=== PATIENT | female | born 1980 ===

== ENCOUNTER 2018-05-11 01:25 | Emergency (ER) | payer SELFPAY ==
[2018-05-11 01:25] VITALS: BMI 24.2
[2018-05-11 01:31] VITALS: RESP 16
[2018-05-11 02:02] LABS: HCG,QUALITATIVE URINE NEGATIVE (NEGATIVE)
[2018-05-11 02:15] LABS: URINE BACTERIA OCC (<OCC); URINE BILIRUBIN NEGATIVE (NEGATIVE); URINE BLOOD 3+ (NEGATIVE); URINE COLOR Yellow (YELLOW); URINE GLUCOSE (UA) NORMAL (Normal); URINE LEUKOCYTE ESTERASE 3+ Leu/uL (Negative); URINE PROTEIN 2+ mg/dL (NEGATIVE); URINE UROBILINOGEN NORMAL mg/dL (0.2-1.0); WBC CLUMPS FEW /hpf
[2018-05-11 02:22] LABS: URINE CLARITY Turbid (Clear)
[2018-05-11] MEDS ORDERED: Sodium Chloride 0.9% 1,000 ML IV ONE (02:26)
--- NOTE | 2018-05-11 02:28 | C.PDOC ---
History Of Present Illness 37 yo female w/o significant PMHx come in for evaluation of chills, bodyaches developed since early today. Pt also c/o diffuse lower back pain, discomfort on urination for past few days, noted some blood in urine early today. Pt sts, also developed some cold sx associated with sore throat, earache when was seen by PMD and started on Augment 3 days ago with moderate improvement in cold sx. Otherwise, pt denies headache, dizziness, neck pain, drooling, CP, SOB, dyspnea, abd. pain, V/D, vaginal irritation or discharges. Ambulate to Ed for evaluation, appears in pain. Time Seen by Provider: 05/11/18 01:39 Chief Complaint (Nursing): Female Genitourinary History Per: Patient Past Medical History Reviewed: Historical Data, Nursing Documentation, Vital Signs Vital Signs: Last Vital Signs Temp 99.2 F 05/11/18 01:31 Pulse 114 H 05/11/18 01:31 Resp 16 05/11/18 01:31 BP 144/98 H 05/11/18 01:31 Pulse Ox 96 05/11/18 01:31 - Medical History PMH: No Chronic Diseases, Gall Bladder Disease Denies: Chronic Kidney Disease Surgical History: Cholecystectomy Family History: States: No Known Family Hx - Social History Hx Tobacco Use: No Hx Alcohol Use: No Hx Substance Use: No - Immunization History Hx Tetanus Toxoid Vaccination: Yes Hx Influenza Vaccination: No Hx Pneumococcal Vaccination: Yes Review Of Systems Except As Marked, All Systems Reviewed And Found Negative. Constitutional: Positive for: Fever (low grade), Chills, Malaise Eyes: Negative for: Vision Change ENT: Positive for: Nose Discharge, Nose Congestion. Negative for: Ear Discharge, Throat Pain, Throat Swelling Cardiovascular: Negative for: Chest Pain, Palpitations Respiratory: Negative for: Cough, Shortness of Breath, Sputum, Wheezing Gastrointestinal: Positive for: Nausea. Negative for: Vomiting, Abdominal Pain, Diarrhea Genitourinary: Positive for: Dysuria, Frequency, Hematuria. Negative for: Vaginal Discharge, Vaginal Bleeding Musculoskeletal: Positive for: Back Pain. Negative for: Neck Pain Skin: Negative for: Rash Neurological: Negative for: Weakness, Numbness, Headache, Dizziness Physical Exam - Physical Exam Appears: Well, Non-toxic, No Acute Distress Skin: Normal Color, Warm, Dry, No Rash Head: Normacephalic Eye(s): bilateral: PERRL Ear(s): Bilateral: Normal Nose: No Flaring, No Discharge Oral Mucosa: Moist, No Drooling Throat: No Erythema, No Drooling Neck: Trachea Midline, Supple Cardiovascular: Rhythm Regular, No Murmur, No JVD Respiratory: No Decreased Breath Sounds, No Accessory Muscle Use, No Stridor, No Wheezing Gastrointestinal/Abdominal: Soft, Tenderness (mod suprapubic), No Distention, No Guarding, No Rebound Back: No CVA Tenderness, No Vertebral Tenderness, Paraspinal Tenderness (diffuse lumbar) Extremity: Normal ROM, No Deformity, No Swelling Neurological/Psych: Oriented x3, Normal Speech ED Course And Treatment - Laboratory Results Result Diagrams: 05/11/18 02:41 05/11/18 02:41 Urine POC: Negative O2 Sat by Pulse Oximetry: 96 Pulse Ox Interpretation: Normal Progress Note: Pt was OBS in ED for 3 hours and reports moderate improvement in sx. On re-eval, pt appears more comofrtable, afebrile, hemodynamicaly stable. Non-toxic. Tolerate po well in ED. Neck: Supple, (-) meningeal sign. ENT: no acute findings. uuval midline, no edema. Lungs: CTA B/L, BS equal B/L. Abd: be nign, (-) guarding, (-) rebound, (-) RLQ tenderness. back: (-) CVA tenderness. Blood work review, mild leukocytosis with left shift, no evidence of dehydration, normal BUN/CR. UA results (+) WBC, RBC. Pt recieved empirically Rocephin for tx of cystitis r/o early pyelo. Pt advised on course of ds. ref. to f/u with PMD in 1-2 days for re-eavl. Pt advised return to Ed immediately if no improvement in 24 hrs after abx initiation. Pt understand an dagrees with plan. Stable for discharge now. Disposition Counseled Patient/Family Regarding: Studies Performed, Diagnosis, Need For Followup, Rx Given - Disposition Referrals: Bola Justin MD [Non-Staff] - Disposition: HOME/ ROUTINE Disposition Time: 04:20 Condition: STABLE Additional Instructions: STOP AUGMENTIN NOW AND CHANGE TO NEW MEDICATION THAT RECEIVED TODAY Encourage fluids Take medication as prescribed Cranberry supplement daily for 3-4 weeks Follow up with PMD in 2-3 days for re-evaluation. return to ED at any time if any worsening of current symptom or no improvement in 24 hours after antibiotic initiated Prescriptions: Cefdinir [Omnicef] 300 mg PO BID #10 cap Cranberry 500 mg PO BID #60 capsule Phenazopyridine [Pyridium] 200 mg PO BID #6 tab Instructions: Urinary Tract Infection, Adult (DC), Kidney Infection (DC) Forms: [employer] (Comoran) Print Language: ICELANDIC - Clinical Impression Clinical Impression: Pyelonephritis, UTI (urinary tract infection)
[2018-05-11] MEDS ORDERED: Sodium Chloride 0.9% 1,000 ML ONE (02:41)
[2018-05-11] MEDS ORDERED: cefTRIAXone 1 gm 1 GM/100 ML BAG IVPB ONE (02:41)
[2018-05-11 02:46] LABS: BASO # 0.1 K/uL (0.0-0.2); BASO % 0.4 % (0.0-2.0); EOS # 0.2 K/uL (0.0-0.7); LYMPH # 1.5 K/uL (1.0-4.3); LYMPH % 9.5 % (20.0-40.0); MEAN CELL VOLUME 87.9 fL (81.0-99.0); MEAN CORPUSCULAR HEMOGLOBIN 30.3 pg (27.0-31.0); MEAN CORPUSCULAR HGB CONC 34.5 g/dL (33.0-37.0); MEAN PLATELET VOLUME 9.7 fL (7.2-11.7); MONO # 1.4 K/uL (0.0-0.8); MONO % 8.6 % (0.0-10.0); NEUT # 12.9 K/uL (1.8-7.0); NEUT % 80.5 % (50.0-75.0); PLATELET COUNT 192 K/uL (130-400); RBC 4.63 Mil/uL (3.80-5.20); RED CELL DISTRIBUTION WIDTH 13.4 % (11.5-14.5)
[2018-05-11 03:16] LABS: ALB/GLOB RATIO 1.5 (1.0-2.1); ALBUMIN 4.3 g/dL (3.5-5.0); ALT/SGPT 32 U/L (9-52); AST/SGOT 23 U/L (14-36); BLOOD UREA NITROGEN 18 mg/dL (7-17); CALCIUM 9.5 mg/dl (8.6-10.4); GFR NON-AFRICAN AMERICAN > 60
[2018-05-11 04:45] LABS: EOSINOPHIL 1 % (0-4); LYMPHOCYTE 6 % (20-40); MONOCYTE 4 % (0-10); NEUTROPHIL 79 % (50-75); PLATELET ESTIMATE NORMAL (NORMAL); REACTIVE LYMPHOCYTES 10 % (0-0); TOTAL CELLS COUNTED 100
[2018-05-11 05:09] VITALS: BP 100/64; PULSE 87; TEMP 98.8
[2018-05-11 06:05] VITALS: O2SAT 96
== END 2018-05-11 05:20 | disposition home or self-care (01) ==
LOC: C.ER 01:25
DX: N12 Tubulo-interstitial nephritis, not specified as acute or chronic (principal)
CPT/HCPCS: 80053; 81001; 84703; 85025; 87040; 87086; 96365; 96375; 99285; J0696; J1885; J2405; J7030

== ENCOUNTER 2018-07-12 17:48 | Emergency (ER) | payer OTHER ==
[2018-07-12 17:48] VITALS: BMI 24.2
[2018-07-12 18:30] VITALS: RESP 18
[2018-07-12] MEDS ORDERED: LIDOCAINE IV STA (19:52)
[2018-07-12] MEDS ORDERED: Sodium Chloride 0.9% 1,000 ML IV STA (19:52)
[2018-07-12] MEDS ORDERED: SODIUM CHLORIDE 0.9% IV STA (19:52)
--- NOTE | 2018-07-12 19:52 | C.PDOC ---
History Of Present Illness 37 year old female presents to the ER with a complaint of intermittent right flank pain for the past 4 days associated with dysuria, subjective fever, and nausea. Patient states the pain occasionally radiates to the right abdomen. She reports a past surgical Hx of cholecystectomy. Denies vomiting, chest pain, or SOB. Time Seen by Provider: 07/12/18 19:27 Chief Complaint (Nursing): Back Pain History Per: Patient History/Exam Limitations: no limitations Onset/Duration Of Symptoms: Days (4), Intermittent Episodes Current Symptoms Are (Timing): Still Present Quality Of Discomfort: Unable To Describe Associated Symptoms: Fever (Subjective), Nausea, Urinary Symptoms (Dysuria). denies: Vomiting, Chest Pain, Other (SOB) Recent travel outside of the [place]: No Abnormal Vaginal Bleeding: No Past Medical History Reviewed: Historical Data, Nursing Documentation, Vital Signs Vital Signs: Last Vital Signs Temp 98.1 F 07/12/18 18:27 Pulse 96 H 07/12/18 18:27 Resp 18 07/12/18 18:27 BP 136/87 07/12/18 18:27 Pulse Ox 99 07/12/18 18:27 - Medical History PMH: Gall Bladder Disease Denies: Chronic Kidney Disease Surgical History: Cholecystectomy Family History: States: Unknown Family Hx - Social History Hx Tobacco Use: No Hx Alcohol Use: No Hx Substance Use: No - Immunization History Hx Tetanus Toxoid Vaccination: Yes Hx Influenza Vaccination: No Hx Pneumococcal Vaccination: Yes Review Of Systems Except As Marked, All Systems Reviewed And Found Negative. Constitutional: Positive for: Fever (Subjective) Cardiovascular: Negative for: Chest Pain Respiratory: Negative for: Shortness of Breath Gastrointestinal: Positive for: Nausea. Negative for: Vomiting Genitourinary: Positive for: Dysuria Musculoskeletal: Positive for: Other (Right flank pain radiating to right abdomen) Physical Exam - Physical Exam Appears: Non-toxic, Other (Mild distress) Skin: Normal Color, Warm, Dry Head: Atraumatic, Normacephalic Eye(s): bilateral: Normal Inspection Oral Mucosa: Moist Neck: Normal, Supple Chest: Symmetrical, No Tenderness Cardiovascular: Rhythm Regular Respiratory: Normal Breath Sounds, No Rales, No Rhonchi, No Wheezing Gastrointestinal/Abdominal: Soft, No Tenderness Back: CVA Tenderness (Right), Other (ROM Normal) Extremity: Normal ROM (x4) Neurological/Psych: Oriented x3, Normal Speech ED Course And Treatment - Laboratory Results Result Diagrams: 07/12/18 20:36 07/12/18 20:36 Urine POC: Negative O2 Sat by Pulse Oximetry: 99 (Room air) Pulse Ox Interpretation: Normal Progress - Re-Evaluation Re-evaluation Note: 07/12/18 22:[address] REPORT REVIEWED. SP ABX. DC FU PMD - Data Reviewed Data Reviewed: Lab, Diagnostic imaging, Old records Medical Decision Making Medical Decision Making: Plan: * CT abd/pel * Blood work * Urinalysis * IV fluids * Toradol * Lidocaine * Tylenol * Flomax Disposition Counseled Patient/Family Regarding: Studies Performed, Diagnosis, Need For Followup, Rx Given - Disposition Referrals: [facility] [Outside] at [facility] [Outside] Disposition: HOME/ ROUTINE Disposition Time: 22:20 Condition: IMPROVED Prescriptions: Ciprofloxacin [Cipro] 1 tab PO BID #28 tab Ibuprofen [Motrin] 600 mg PO Q6 #30 tab Phenazopyridine HCl [Pyridium] 200 mg PO BID #6 tablet Instructions: Kidney Infection (DC) Forms: [employer] (Nigerian), Work Excuse Print Language: MOZAMBICAN - Clinical Impression Clinical Impression: Pyelonephritis - Scribe Statement The provider has reviewed the documentation as recorded by the Scribleonard Block All medical record entries made by the Memeibleonard were at my direction and personally dictated by me. I have reviewed the chart and agree that the record accurately reflects my personal performance of the history, physical exam, medical decision making, and the department course for this patient. I have also personally directed, reviewed, and agree with the discharge instructions and disposition.
[2018-07-12] MEDS ORDERED: Sodium Chloride 0.9% 1,000 ML ONE (20:27)
[2018-07-12 20:41] LABS: BASO # 0.1 K/uL (0.0-0.2); BASO % 0.6 % (0.0-2.0); EOS # 0.2 K/uL (0.0-0.7); HEMOGLOBIN 14.7 g/dL (11.0-16.0); LYMPH # 2.5 K/uL (1.0-4.3); LYMPH % 24.6 % (20.0-40.0); MEAN CELL VOLUME 89.4 fL (81.0-99.0); MEAN CORPUSCULAR HGB CONC 34.6 g/dL (33.0-37.0); MEAN PLATELET VOLUME 9.8 fL (7.2-11.7); MONO # 1.2 K/uL (0.0-0.8); MONO % 11.5 % (0.0-10.0); NEUT # 6.1 K/uL (1.8-7.0); NEUT % 61.3 % (50.0-75.0); NRBC % 0.1 % (0.0-2.0); RBC 4.75 Mil/uL (3.80-5.20); RED CELL DISTRIBUTION WIDTH 13.2 % (11.5-14.5)
[2018-07-12 20:59] LABS: ALB/GLOB RATIO 1.4 (1.0-2.1); ALBUMIN 4.7 g/dL (3.5-5.0); ALT/SGPT 25 U/L (9-52); AST/SGOT 25 U/L (14-36); BLOOD UREA NITROGEN 18 mg/dL (7-17); CALCIUM 9.9 mg/dl (8.6-10.4); GFR NON-AFRICAN AMERICAN > 60; LIPASE 90 U/L (23-300)
[2018-07-12 21:17] LABS: SQUAMOUS EPITHIAL 2 /hpf (0-5); URINE BACTERIA FEW (<OCC); URINE BILIRUBIN NEGATIVE (NEGATIVE); URINE BLOOD 2+ (NEGATIVE); URINE CLARITY Hazy (Clear); URINE COLOR Yellow (YELLOW); URINE GLUCOSE (UA) NORMAL (Normal); URINE LEUKOCYTE ESTERASE 3+ Leu/uL (Negative); URINE PROTEIN 1+ mg/dL (NEGATIVE); URINE UROBILINOGEN NORMAL mg/dL (0.2-1.0); WBC CLUMPS MOD /hpf
[2018-07-12 21:52] VITALS: BP 115/76; PULSE 84; TEMP 98.2
[2018-07-12 22:21] VITALS: O2SAT 99
--- NOTE | 2018-07-13 10:21 | CT ---
Date of service: 07/12/2018 PROCEDURE: CT Abdomen and Pelvis . HISTORY: R FLANK PAIN COMPARISON: None. TECHNIQUE: Contiguous axial images of the abdomen and pelvis performed without oral or intravenous contrast material. Coronal and Sagittal reformats generated. Radiation dose: Total exam DLP = 299.36 mGy-cm. This CT exam was performed using one or more of the following dose reduction techniques: Automated exposure control, adjustment of the mA and/or kV according to patient size, and/or use of iterative reconstruction technique. FINDINGS: LOWER THORAX: Lung bases otherwise clear with no discrete infiltrate the renal. No infiltrate effusion or basilar pneumothorax. Tiny hiatal hernia. Heart size is within range of normal. No significant pericardial effusion. LIVER: Liver demonstrates normal size and attenuation pattern. No evidence of hepatic masses or collections. No hepatic calcifications. GALLBLADDER AND BILE DUCTS: Cholecystectomy. PANCREAS: Unenhanced pancreas appears grossly unremarkable without mass collection or calcification.. SPLEEN: Spleen exhibits normal size and attenuation pattern without mass collection or calcification.. ADRENALS: No adrenal lesions.. KIDNEYS AND URETERS: Kidneys demonstrate relatively symmetric size. No evidence of obstructing nephrolithiasis. There appears to be some minimal infiltration in the right-sided periureteric fat; rule out ascending UTI BLADDER: Urinary bladder appears incompletely distended which may in part account for thick-walled appearance however given the patient's history of right flank pain, the possibility of a cystitis/UTI should be excluded. Correlation clinical correlation with urinalysis. REPRODUCTIVE: Unremarkable. APPENDIX: Normal-appearing appendix. BOWEL: Evaluation of the bowel is somewhat limited due to the lack of oral contrast material. Stomach is distended with food debris liquid and air. Visualized loops of small bowel exhibit normal contour and caliber. No evidence of acute mechanical small bowel obstruction. Note that the there does appear to be fecalized content within multiple loops of small bowel suggesting stasis. Moderate amount of stool seen throughout the cecum ascending and transverse colon consistent with fecal retention/constipation. PERITONEUM: Unremarkable. No fluid collection. No free air. There is a tiny fat containing umbilical hernia. LYMPH NODES: Unremarkable. No enlarged lymph nodes. VASCULATURE: Unremarkable. No aortic aneurysm. No aortic atherosclerotic calcification or mural plaque present. BONES: Mild multilevel degenerative spondylosis of the lower thoracic and lumbar spine. OTHER FINDINGS: None. IMPRESSION: There is mild wall thickening of the urinary bladder likely due to incomplete distention however given the patient's history right-sided flank pain and what appears represent some minimal periureteric infiltration about the right proximal ureter, the possibility of a cystitis/ascending UTI should be considered. Correlation with urinalysis recommended. Note this report was placed in PA review folder for follow up.
== END 2018-07-12 22:46 | disposition home or self-care (01) ==
LOC: C.ER 17:48
DX: N12 Tubulo-interstitial nephritis, not specified as acute or chronic (principal)
CPT/HCPCS: 74176; 80053; 81001; 83690; 85025; 87086; 87181; 96361; 96365; 96375; 99284; J0696; J1885; J2001; J7030